=== PATIENT | female | born 1940 | race African-American/Black ===

== ENCOUNTER 2018-07-17 07:48 | Inpatient (IN) | payer MEDICARE, OTHER ==
[2018-07-17 08:14] LABS: Hemoglobin 9.7 g/dL (12.0-16.0); Mean Corpuscular HGB CONC 31.4 g/dL (32.0-36.0); Mean Corpuscular Hemoglobin 28.2 pg (27.0-31.0); Mean Corpuscular Volume 89.9 fL (78.0-98.0); Mean Platelet Volume 9.5 fL (7.4-10.4); Platelet Count 244 thou/uL (130-400); RBC Distribution Width 13.9 % (11.5-14.5); Red Blood Cell (RBC) Count 3.45 mill/uL (4.20-5.40); White Blood Cell (WBC) Count 18.4 thou/uL (4.8-10.8)
[2018-07-17 08:23] LABS: Bilirubin Negative (Negative); Blood, Urine Moderate (Negative); Clarity TURBID (Clear); Glucose, Urine (Dipstick) Negative (Negative); Leukocyte Large (Negative); Nitrite Negative (Negative); Protein, Urine (Dipstick) 300 mg/dL (Neg-Trace); Specific Gravity, Urine 1.012 (1.002-1.036); Urobilinogen 0.2 mg/dL (0.2-1.0)
[2018-07-17 08:23] LABS: INR-International Normal Ratio 1.1; PTT 27.9 SEC (22.9-36.1); Prothrombin Time 14.2 SEC (12.0-14.7)
[2018-07-17 08:26] LABS: Bacteria/HPF 4+ HPF (None Seen); RBC/HPF GREATER THAN 50-TNTC HPF (0-3); Squamous Epithelial 0-3 HPF (0-3)
[2018-07-17 08:27] LABS: Pathc Cast-AUWi Flag 7.15 (0-2.49); Yeast-AUWi Flag 56.7 (0-25.0)
[2018-07-17 08:29] LABS: Amphetamine Not Detected (NotDetected); Barbiturates Screen Not Detected (NotDetected); Benzodiazepine Screen Not Detected (NotDetected); Cocaine Metabolite Screen Not Detected (NotDetected); Medtox Control Line Valid? VALID (VALID); Medtox Reader # READER 1; Methadone Not Detected (NotDetected); Methamphetamine Not Detected (NotDetected); Opiate Screen Not Detected (NotDetected); Oxycodone Screen Not Detected (NotDetected); Phencyclidine (PCP) Not Detected (NotDetected); THC/Cannabinoid Screen Not Detected (NotDetected); Tricyclic Screen Not Detected (NotDetected)
[2018-07-17 08:30] LABS: ALT (SGPT) 17 U/L (8-55); AST (SGOT) 16 U/L (5-34); Acetaminophen Less than 6.0 mcg/mL (10.0-30.0); Albumin 3.5 g/dL (3.4-4.8); Alcohol Less than 10 mg/dL (Less than 10); Alkaline Phosphatase 82 U/L (40-150); Anion Gap 17 mmol/L (10-20); BUN (Urea Nitrogen) 38 mg/dL (9.8-20.1); Bilirubin, Total 0.3 mg/dL (0.2-1.2); Calc. Creatinine Clearance 0 mL/min (70-130); Calcium 9.7 mg/dL (7.8-10.44); Carbon Dioxide 20 mmol/L (23-31); Chloride 109 mmol/L (98-107); Estimated GFR-MDRD 20; Glucose 134 mg/dL (83-110); Potassium 4.8 mmol/L (3.5-5.1); Protein, Total 7.5 g/dL (6.0-8.3); Salicylate Less than 8.0 mg/dL (15.0-30.0); Sodium 141 mmol/L (136-145)
[2018-07-17 08:32] LABS: Band 3 % (5-11); Hypochromia SLIGHT = 6-15 cells (100X) (0-5/hpf); Lymphocytes 9 % (21-51); MDiff Complete? YES; Monocytes 5 % (0-10); Neutrophil 83 % (42-75); Platelet Morphology Comment Appears Adequate; Target Cells SLIGHT = 2-5 cells (100X) (0-1/hpf)
[2018-07-17 08:34] LABS: Hyaline Casts/LPF 0-3 HYALINE CAST LPF (0-3 Hyaline); Manual Microscopic Reviewed? No Path Casts Seen; Yeast-All Forms None Seen HPF (None Seen)
--- NOTE | 2018-07-17 09:14 | CT ---
HEAD CT WITHOUT CONTRAST: HISTORY: Altered mental status. COMPARISON: None. FINDINGS: No parenchymal hemorrhage. No extraaxial hematoma. No midline shift. The basilar cisterns are dhaliwal nt. Age appropriate atrophy. Cortical davies white matter differentiation is preserved. No evidence of hydrocephalus. White matter hypodensities due to chronic small vessel ischemic change. Remote in sult involving the left caudate nucleus and left miguel radiata. Adequate aeration of the sinuses and mastoid air cells. The calvarium is intact. IMPRESSION: No acute intracranial process. The results of the study were discussed with Dr. Morin on 07/17/2018 at 8:23 a.m. CODE CR POS: SAM
[2018-07-17] MEDS ORDERED: cefTRIAXone\\ROCEPHIN 2 GM VIAL ONE (09:15)
[2018-07-17] MEDS ORDERED: Acetaminophen 500 MG TAB ONE (10:20)
[2018-07-17] MEDS ORDERED: Ondansetron PF 4 MG/2 ML Vial ONE ×2 (10:47→12:02)
[2018-07-17] MEDS ORDERED: Morphine 2 MG/ML SYRINGE ONE ×2 (10:47→12:02)
[2018-07-17] MEDS ORDERED: Ondansetron PF 4 MG/2 ML Vial IVP PRN (12:45)
[2018-07-17] MEDS ORDERED: Dextrose 50% Abboject 50 ML SYRINGE SLOW IVP PRN (12:45)
[2018-07-17] MEDS ORDERED: Ondansetron ODT 4 MG TAB PO PRN (12:45)
[2018-07-17] MEDS ORDERED: Lorazepam 2 MG/ML VIAL SLOW IVP PRN (12:45)
[2018-07-17] MEDS ORDERED: Dextrose 5% in Water 1,000 ML IV PRN (12:45)
--- NOTE | 2018-07-17 14:02 | HP ---
PRIMARY CARE PROVIDER: Dr. Everett Drummond. CHIEF COMPLAINT: Confusion. HISTORY OF PRESENT ILLNESS: This is a 78-year-old female, who initially presented to [facility] after the patient's sister noted increased confusion and difficulty speaking. The symptoms began somewhat abruptly on the date of admission with slurred speech, decreased attentiveness, and confusion. The sister provides the majority of the history as the patient has disorientation, confusion, and essentially nonverbal. Discussions were also had with the emergency room attending regarding the patient's history. The patient was noted previously normal within the last 24 hours as she resides with her sister in the [facility]. The patient had similar presentation of confusion in September of 2017 after being discovered with urinary tract infection requiring hospitalization and IV antibiotic therapy. The sister reports the patient moved her sister to the [facility] so that she could care for her and establish with local physicians for long-term healthcare management. The sister became concerned when she felt like her sister was having a stroke and called EMS personnel. The patient was evaluated initially including glucose evaluation, which was normal. The patient was evaluated in the emergency department, undergoing CT imaging of the brain showing no acute process. Screening metabolic survey did reveal elevated creatinine as well as urinalysis suspicious for infectious process. The patient received IV Rocephin, Tylenol, normal saline, Zofran, and morphine sulfate in the emergency room. PAST MEDICAL HISTORY: 1. Hypertension. 2. Peripheral vascular disease. 3. Chronic kidney disease. 4. Diabetes mellitus type 2. PAST SURGICAL HISTORY: 1. Status post right lwpkl-[id number]-[id number] amputation. 2. Status post hysterectomy. CURRENT MEDICATIONS: 1. Lisinopril 20 mg p.o. b.i.d. 2. Metoprolol 25 mg p.o. daily. 3. Humalog. ALLERGIES: NO KNOWN DRUG ALLERGIES. FAMILY HISTORY: Positive for hypertension and diabetes. SOCIAL HISTORY: The patient resides in the [place], [place] area with her sister. Ambulates with a right lower extremity prosthesis. Needs assistance with activities of daily living and meal preparation. Smokes several cigarettes daily. Longstanding smoking history since the age of 12. No alcohol or illicit drug use. No recent fall. REVIEW OF SYSTEMS: Unobtainable as the patient with altered mental status and encephalopathy. PHYSICAL EXAMINATION: VITAL SIGNS: On admission, blood pressure 172/87, pulse 91, respiratory rate 20, temperature 98.6 degrees Fahrenheit, O2 saturation 97% on room air. GENERAL APPEARANCE: This is a 78-year-old female, alert and oriented to name only, agitated, moving all extremities. HEENT: Pupils are equal, round, reactive to light and accommodation. Extraocular muscles are intact. No scleral icterus. No conjunctival injection. Nares patent. OP is clear. Oral mucosa, dry appearing. NECK: Supple. No cervical adenopathy. No thyromegaly. No carotid bruits. No JVD appreciated. Cervical spine with full active and passive range of motion. No meningeal signs noted. CHEST: Lungs are clear to auscultation bilaterally. CARDIOVASCULAR: S1 and S2 without noted murmur, rub, or gallop. ABDOMEN: Rounded, soft, nontender, and nondistended. Bowel sounds are positive in all 4 quadrants. There is no hepatosplenomegaly. No abdominal bruits. Mild tenderness to palpation in the suprapubic region. EXTREMITIES: Warm and dry with fair turgor. Right [id number]-nht-zfvx amputation noted with stump intact. Pulses palpable at the dorsalis pedis and posterior tibial arteries in the left lower extremity. No asymmetric edema noted. NEUROLOGIC: Cranial nerves 2 through 12 are grossly intact. Alert and oriented x1 to person. Mumbles a few words. Not observed ambulatory during this exam. PERTINENT LABORATORY DATA AND X-RAY FINDINGS: Sodium 141, potassium 4.8, chloride 109, CO2 of 20, BUN 38, creatinine 2.34, estimated GFR 20, glucose 134, calcium 9.7. Lactic acid level 1.7. LFTs within normal limits. Serum ammonia level 17. Lipase 53. CBC showed a white blood cell count of 18.4, hemoglobin 9.7, hematocrit 31, platelet count 244 with 83% neutrophils. PT 14.2, INR 1.1, PTT 27.9. Urinalysis showed positive protein, moderate blood with large leukocyte esterase with greater than 50 to [id number]-tenqyafe-xc-count rbc's and wbc's per high-power field. Urine drug screen dated 07/17/2018, negative. Plasma alcohol level less than 10. CT of the brain without contrast dated 07/17/2018, showed no acute intracranial process. EKG dated 07/17/2018, by my interpretation shows sinus mechanism with heart rates in the 90s. Premature atrial contraction noted. Normal axis. No acute ST-T wave changes appreciated. ASSESSMENT AND PLAN: 1. Acute metabolic encephalopathy. Suspect secondarily to urinary tract infection. We will continue treatment as outlined in #2 and monitor mental status response. No current evidence to suggest an acute ischemic central event. Ativan 0.5 mg IV q.6 hours p.r.n. for agitation. 2. Urinary tract infection. Continue Rocephin 2 g IV q.24 hours. Urine culture pending. Continue IV fluids with normal saline. 3. Acute kidney injury. Avoid nephrotoxic agents and limit contrast exposure. Continue intravenous normal saline at 100 mL/h. Repeat creatinine in the a.m. 4. Chronic normocytic anemia. Suspect secondarily to chronic kidney disease. No current evidence to suggest acute blood loss. Repeat CBC in the a.m. 5. Diabetes mellitus type 2. Insulin sliding scale for reflexive coverage. Check A1c level in the a.m. Accu-Cheks a.c. and at bedtime. ADA diet. 6. Prophylaxis. Heparin 5000 units subcutaneously b.i.d. Pepcid 20 mg p.o. b.i.d. PT evaluation for functional assessment. 7. Code status is full. Surrogate medical decision maker is the patient's sister. Job ID: [id number]
[2018-07-17 14:51] VITALS: BMI 21.7
[2018-07-17] MEDS: Sodium Chloride 0.9% 1,000 ML IV SCH (15:08)
[2018-07-17] MEDS: Acetaminophen 500 MG TAB PO PRN (17:54)
[2018-07-17] MEDS: Famotidine 20 MG TAB PO SCH (20:20)
[2018-07-17] MEDS: Heparin 5,000 UNITS/ML VIAL SC SCH (20:20)
[2018-07-18] MEDS: Sodium Chloride 0.9% 1,000 ML IV SCH ×4 (01:23→22:31)
[2018-07-18] MEDS: Heparin 5,000 UNITS/ML VIAL SC SCH ×2 (07:58→20:06)
[2018-07-18] MEDS: cefTRIAXone\\ROCEPHIN 2 GM in Sodium Chloride 0.9% 100 ML IVPB SCH (07:58)
[2018-07-18 08:00] LABS: Hemoglobin A1c 4.8 % (4.0-6.0)
[2018-07-18] MEDS: hydrALAZINE 20 MG/ML VIAL SLOW IVP PRN (08:06)
[2018-07-18 08:14] LABS: Anion Gap 15 mmol/L (10-20); BUN (Urea Nitrogen) 27 mg/dL (9.8-20.1); Calc. Creatinine Clearance 23 mL/min (70-130); Carbon Dioxide 18 mmol/L (23-31); Chloride 113 mmol/L (98-107); Estimated GFR-MDRD 30; Glucose 116 mg/dL (83-110); Potassium 4.2 mmol/L (3.5-5.1); Sodium 142 mmol/L (136-145)
[2018-07-18 08:45] LABS: Band 1 % (5-11); Eosinophils 3 % (0-10); Hemoglobin 8.9 g/dL (12.0-16.0); Lymphocytes 11 % (21-51); MDiff Complete? YES; Mean Corpuscular HGB CONC 33.2 g/dL (32.0-36.0); Mean Corpuscular Hemoglobin 29.5 pg (27.0-31.0); Mean Corpuscular Volume 88.9 fL (78.0-98.0); Mean Platelet Volume 9.5 fL (7.4-10.4); Monocytes 10 % (0-10); Neutrophil 75 % (42-75); Platelet Count 204 thou/uL (130-400); RBC Morphology Normal; Red Blood Cell (RBC) Count 3.01 mill/uL (4.20-5.40); White Blood Cell (WBC) Count 12.4 thou/uL (4.8-10.8)
--- NOTE | 2018-07-18 12:06 | RAD ---
RIGHT HIP TWO VIEWS: HISTORY: Pain. COMPARISON: None. FINDINGS: There is irregularity involving the medial aspect of the acetabulum. This does raise the concern for a possible fracture. Further interrogation with CT is recommended. Contour of the femoral head is maintained. Hip joint space is preserved. IMPRESSION: Possible right acetabular fracture. Better interrogation with CT is recommended. CODE T POS: [facility]
[2018-07-18] MEDS: Acetaminophen 500 MG TAB PO PRN (12:27)
--- NOTE | 2018-07-18 13:47 | CT ---
CT OF THE PELVIS WITHOUT CONTRAST: INDICATION: Right acetabular fracture. FINDINGS: There is a comminuted fracture involving the anterior column, anterior wall, and medial wall of the r ight hip. There is mild protrusio deformity of the right hip. The posterior column remains intact. The posterior wall remains intact. No additional fracture is evident. There is diffuse osteopenia. There is a right ureteral stent in place. There is moderate degenerative change of both SI joints. There is moderate degenerative change of the symphysis pubic. A small bone island is seen within t he left acetabulum. There are scattered vascular calcifications of the pelvis. IMPRESSION: Comminuted right acetabular fracture. POS: [facility]
--- NOTE | 2018-07-18 14:33 | PDOC.PN ---
- Subjective Encounter Start Date: 07/18/18 Encounter Start Time: 08:20 Pt seen for followup re; acute metabolic encephalopathy. Denies chest pain, shortness of breath, fevers or chills. c/o R hip pain - Objective Resuscitation Status - Order Detail: 07/17/18 11:48 Resuscitation Status Routine Resuscitation Status: FULL: Full Resuscitation Vital Signs & Weight: Vital Signs (12 hours) Temp Pulse Resp BP Pulse Ox 07/18/18 11:42 99.2 F 96 18 167/70 H 100 07/18/18 08:06 99 07/18/18 07:53 98.7 F 99 20 191/78 H 97 07/18/18 05:20 99.6 F 71 20 176/75 H 93 L Weight Weight 134 lb 3 oz I&O: 07/17/18 07/18/18 07/19/18 06:59 06:59 06:59 Intake Total 1520 Balance 1520 Result Diagrams: 07/18/18 07:17 07/18/18 07:17 Additional Labs: Accuchecks 07/18/18 07/18/18 07/17/18 11:40 05:18 20:16 POC Glucose 202 H 135 H 183 H 07/17/18 17:29 POC Glucose 162 H Phys Exam - Physical Examination Constitutional: NAD HEENT: moist MMs, sclera anicteric, oral pharynx no lesions, 2+ tonsils Neck: no nodes, no JVD, supple, full ROM Respiratory: clear to auscultation bilateral Cardiovascular: RRR, no rub S1, s2 Gastrointestinal: soft, non-tender, no distention, positive bowel sounds R hip tenderness Neurological: moves all 4 limbs Psychiatric: normal affect Deviation from normal: Oriented to person only, not to place or time Dx/Plan (1) Acute metabolic encephalopathy Code(s): G93.41 - METABOLIC ENCEPHALOPATHY Status: Acute Comment: Improving , likely secondary to UTI (2) UTI (urinary tract infection) Status: Acute Comment: continue IV antibiotics as below (3) Right hip pain Code(s): M25.551 - PAIN IN RIGHT HIP Status: Acute Comment: check hip x- rays (4) SABAS (acute kidney injury) Code(s): N17.9 - ACUTE KIDNEY FAILURE, UNSPECIFIED Status: Acute Comment: Improving, continue IV fluids. Hold lisinopril (5) HTN (hypertension) Code(s): I10 - ESSENTIAL (PRIMARY) HYPERTENSION Status: Chronic Comment: monitor vital signs, titrate antihypertensives as needed. Hold lisinopril. - Plan * . Review of Systems - Review of Systems Constitutional: negative: fever, chills, sweats, weakness, malaise Respiratory: negative: Cough, Shortness of Breath, SOB with Excertion, Pleuritic Pain, Wheezing Cardiovascular: negative: chest pain, palpitations, orthopnea, paroxysmal nocturnal dyspnea, edema, light headedness Gastrointestinal: negative: Nausea, Vomiting, Abdominal Pain, Diarrhea, Constipation, Melena, Hematochezia Musculoskeletal: Other (R hip pain). negative: Neck Pain, Shoulder Pain, Arm Pain, Back Pain, Hand Pain, Leg Pain, Foot Pain - Medications/Allergies Allergies/Adverse Reactions: Allergies Allergy/AdvReac Type Severity Reaction Status Date / Time No Known Allergies Allergy Unverified 07/17/18 13:42 Medications: Current Medications Acetaminophen (Tylenol) 1,000 mg PO Q6H PRN PRN Reason: Mild Pain (1-3) Last Admin: 07/18/18 12:27 Dose: 1,000 mg Dextrose/Water (Dextrose 50%) 25 gm SLOW IVP PRN PRN PRN Reason: Hypoglycemia Famotidine (Pepcid) 20 mg PO QPM [facility] Last Admin: 07/17/18 20:20 Dose: 20 mg Glucagon (Glucagon) 1 mg IM PRN PRN PRN Reason: Hypoglycemia Heparin Sodium (Porcine) (Heparin) 5,000 units SC BID [facility] Last Admin: 07/18/18 07:58 Dose: 5,000 units Hydralazine HCl (Apresoline) 10 mg SLOW IVP Q4H PRN PRN Reason: SBP > 180 and HR < 70 Last Admin: 07/18/18 08:06 Dose: 10 mg Ceftriaxone Sodium 2 gm/ (Sodium Chloride) 100 mls @ 200 mls/hr IVPB QAM [facility] Last Admin: 07/18/18 07:58 Dose: 100 mls Dextrose/Water (D5w) 1,000 mls @ 0 mls/hr IV .Q0M PRN PRN Reason: Hypoglycemia Sodium Chloride (Normal Saline 0.9%) 1,000 mls @ 100 mls/hr IV .Q10H [facility] Last Admin: 07/18/18 07:58 Dose: 1,000 mls Insulin Human Lispro (Humalog) 0 units SC .MILD SLIDING SCALE PRN PRN Reason: Mild Correctional Scale Insulin Human Lispro (Humalog) 0 units SC .BEDTIME SLIDING SC PRN PRN Reason: Bedtime Correctional Scale Lorazepam (Ativan) 0.5 mg SLOW IVP Q6H PRN PRN Reason: Anxiety/Agitation Metoprolol Tartrate (Lopressor) 50 mg PO DAILY [facility] Ondansetron HCl (Zofran Odt) 4 mg PO Q6H PRN PRN Reason: Nausea/Vomiting Ondansetron HCl (Zofran) 4 mg IVP Q6H PRN PRN Reason: Nausea/Vomiting
[2018-07-18] MEDS ORDERED: Acetaminophen/Codeine 30-300mg Tablet PO PRN (14:55)
--- NOTE | 2018-07-18 15:11 | CON ---
DATE OF CONSULTATION: 07/18/2018 REQUESTING PHYSICIAN: Medicine Service. CONSULTING PHYSICIAN: Dr. Tao Wood. REASON FOR CONSULTATION: Right acetabulum fracture. HISTORY OF PRESENT ILLNESS: This is a 78-year-old female, who initially presented to [facility] with increased confusion and difficulty speaking per the patient's sister. The patient lives with her sister and has a history of dementia and confusion. She is essentially nonverbal, and the majority of the history has been obtained per the sister at bedside and per records. She had a similar episode in September of 2017 after being discovered with urinary tract infection, requiring hospitalization and IV antibiotic therapy. The patient has currently been admitted for IV antibiotic therapy with a UTI. Upon further workup, the patient was found to have a right nondisplaced acetabulum fracture. We have been consulted for this reason. Currently, at bedside, the patient denies any history of falls. Sister also denies witnessing any falls. She denies any hip discomfort at this time. PAST MEDICAL HISTORY: Significant for hypertension, peripheral vascular disease, chronic kidney disease, diabetes mellitus type 2, and dementia. PAST SURGICAL HISTORY: Status post right [id number] amputation approximately 8 years ago, status post hysterectomy. ALLERGIES: NO KNOWN DRUG ALLERGIES. FAMILY HISTORY: Noncontributory. SOCIAL HISTORY: The patient resides in [place], [place] with her sister. She ambulates with a right lower extremity prosthesis and a rolling walker. She smokes several cigarettes daily. She is a longstanding smoker since the age of 12. No alcohol or illicit drug use. REVIEW OF SYSTEMS: Unobtainable secondary to the patient's dementia. PHYSICAL EXAMINATION: VITAL SIGNS: Including temperature of 99.2 degrees Fahrenheit, pulse of 96, respiratory rate of 18, O2 saturation of 100% on room air, and blood pressure of 167/70. GENERAL: The patient is awake and alert. She is pleasant and cooperative with exam, although very confused. Sister is currently at bedside. HEENT: Head is normocephalic and atraumatic. NECK: Supple. Trachea is midline. LUNGS: Breathing is nonlabored. EXTREMITIES: The right lower extremity was evaluated. The patient has a history of a BKA on this side. The stump has a well-healed surgical scar. No evidence of skin breakdown. No rashes, no lesions. The patient moves this extremity about freely without any discomfort noted. There is no soft tissue swelling or ecchymosis noted. I am able to palpate along the femur up to the greater trochanter without any discomfort. I am also able to move her hip around without any discomfort noted. Remainder of extremities evaluated and no other injuries are noted. IMAGING: Imaging review by myself as well as Dr. Wood shows a 2-view x-ray of the right hip with a probable nondisplaced acetabulum fracture. Further evaluation by CT shows a right acetabulum fracture. ASSESSMENT: Right acetabulum fracture in an elderly female with dementia and history of [id number] amputation on the same side. PLAN: At this time, we would like to make the patient toe-touch weightbearing in order to keep this fracture site from displacing any further. I have had a long talk with the family today in the hospital room regarding this. She does ambulate with a BKA prosthesis. It may be best to leave the prosthesis off or have the patient use a wheelchair to get around for the next couple of months while this is healing. Any further pressure can cause displacement on the fracture site. If this does not heal or heals incorrectly, she will need a total hip replacement in the future. This was also discussed with the family today. They verbalized understanding on the plan of care. We will proceed with toe-touch weightbearing on the right lower extremity and nonsurgical management of this fracture. I will consult Clinical Unit Educator. They may get a wheelchair arranged for her at home. Job ID: [id number]
[2018-07-18] MEDS: Acetaminophen/Codeine 30-300mg Tablet PO PRN ×2 (15:40→22:29)
[2018-07-18] MEDS: HumaLOG 300 UNITS/3 ML VIAL SC PRN (16:15)
[2018-07-18] MEDS: Famotidine 20 MG TAB PO SCH (20:06)
[2018-07-19] MEDS: hydrALAZINE 20 MG/ML VIAL SLOW IVP PRN ×2 (00:43→09:47)
[2018-07-19] MEDS: Sodium Chloride 0.9% 1,000 ML IV SCH ×2 (08:19→20:48)
[2018-07-19] MEDS: cefTRIAXone\\ROCEPHIN 2 GM in Sodium Chloride 0.9% 100 ML IVPB SCH (09:42)
[2018-07-19] MEDS: Metoprolol Tartrate 50 MG TAB PO SCH (09:45)
[2018-07-19] MEDS: Heparin 5,000 UNITS/ML VIAL SC SCH ×2 (09:46→20:48)
[2018-07-19] MEDS ORDERED: hydrALAZINE 25 MG TAB PO SCH (12:15)
[2018-07-19] MEDS: Nicotine 14 MG PATCH TD SCH (12:39)
[2018-07-19] MEDS: HumaLOG 300 UNITS/3 ML VIAL SC PRN ×2 (12:43→17:38)
--- NOTE | 2018-07-19 17:31 | PDOC.PN ---
- Subjective Encounter Start Date: 07/19/18 Encounter Start Time: 09:00 Pt seen for followup re: acute metabolic encephalopathy. Says she feels fine. - Objective Resuscitation Status - Order Detail: 07/17/18 11:48 Resuscitation Status Routine Resuscitation Status: FULL: Full Resuscitation Vital Signs & Weight: Vital Signs (12 hours) Temp Pulse Resp BP BP Pulse Ox 07/19/18 12:37 76 07/19/18 12:31 98.6 F 76 20 166/66 H 95 07/19/18 09:47 102 H 186/85 H 07/19/18 08:05 98.5 F 102 H 22 H 186/85 H 95 07/19/18 08:00 95 Weight Weight 134 lb 3 oz I&O: 07/18/18 07/19/18 07/20/18 06:59 06:59 06:59 Intake Total 1520 1400 120 Balance 1520 1400 120 Result Diagrams: 07/18/18 07:17 07/18/18 07:17 Additional Labs: Accuchecks 07/19/18 07/19/18 07/19/18 16:25 11:51 04:55 POC Glucose 219 H 218 H 154 H 07/18/18 07/18/18 19:44 15:56 POC Glucose 128 H 321 H Phys Exam - Physical Examination Constitutional: NAD HEENT: moist MMs Neck: supple Respiratory: clear to auscultation bilateral Cardiovascular: RRR Gastrointestinal: soft R hip tenderness Neurological: moves all 4 limbs Psychiatric: normal affect Dx/Plan (1) Acute metabolic encephalopathy Code(s): G93.41 - METABOLIC ENCEPHALOPATHY Status: Acute Comment: Improving (2) UTI (urinary tract infection) Status: Acute Comment: continue IV antibiotics as below, follow cultures (3) Right acetabular fracture Code(s): S32.401A - UNSP FRACTURE OF RIGHT ACETABULUM, INIT FOR CLOS FX Status : Acute Comment: appreciate ortho service input (4) SABAS (acute kidney injury) Code(s): N17.9 - ACUTE KIDNEY FAILURE, UNSPECIFIED Status: Acute Comment: Continue IV fluids. Hold lisinopril. Check AM labs. (5) HTN (hypertension) Code(s): I10 - ESSENTIAL (PRIMARY) HYPERTENSION Status: Chronic Comment: monitor vital signs, titrate antihypertensives as needed. - Plan * . Review of Systems - Review of Systems Cardiovascular: negative: chest pain, palpitations, orthopnea, paroxysmal nocturnal dyspnea, edema, light headedness Gastrointestinal: negative: Nausea, Vomiting, Abdominal Pain, Diarrhea, Constipation, Melena, Hematochezia Musculoskeletal: Other (right hip pain) - Medications/Allergies Allergies/Adverse Reactions: Allergies Allergy/AdvReac Type Severity Reaction Status Date / Time No Known Allergies Allergy Unverified 07/17/18 13:42 Medications: Current Medications Acetaminophen (Tylenol) 1,000 mg PO Q6H PRN PRN Reason: Mild Pain (1-3) Last Admin: 07/18/18 12:27 Dose: 1,000 mg Acetaminophen/Codeine Phosphate (Tylenol #3) 1 tab PO Q6H PRN PRN Reason: Moderate Pain (4-6) Last Admin: 07/18/18 22:29 Dose: 1 tab Acetaminophen/Codeine Phosphate (Tylenol #3) 2 tab PO Q6H PRN PRN Reason: Severe Pain (7-10) Dextrose/Water (Dextrose 50%) 25 gm SLOW IVP PRN PRN PRN Reason: Hypoglycemia Famotidine (Pepcid) 20 mg PO QPM [facility] Last Admin: 07/18/18 20:06 Dose: 20 mg Glucagon (Glucagon) 1 mg IM PRN PRN PRN Reason: Hypoglycemia Heparin Sodium (Porcine) (Heparin) 5,000 units SC BID [facility] Last Admin: 07/19/18 09:46 Dose: 5,000 units Hydralazine HCl (Apresoline) 10 mg SLOW IVP Q4H PRN PRN Reason: SBP > 180 and HR < 70 Last Admin: 07/19/18 09:47 Dose: 10 mg Hydralazine HCl (Apresoline) 25 mg PO TID [facility] Ceftriaxone Sodium 2 gm/ (Sodium Chloride) 100 mls @ 200 mls/hr IVPB QAM [facility] Last Admin: 07/19/18 09:42 Dose: 100 mls Dextrose/Water (D5w) 1,000 mls @ 0 mls/hr IV .Q0M PRN PRN Reason: Hypoglycemia Sodium Chloride (Normal Saline 0.9%) 1,000 mls @ 100 mls/hr IV .Q10H [facility] Last Admin: 07/19/18 08:19 Dose: 1,000 mls Insulin Human Lispro (Humalog) 0 units SC .MILD SLIDING SCALE PRN PRN Reason: Mild Correctional Scale Last Admin: 07/19/18 12:43 Dose: 3 unit Insulin Human Lispro (Humalog) 0 units SC .BEDTIME SLIDING SC PRN PRN Reason: Bedtime Correctional Scale Lorazepam (Ativan) 0.5 mg SLOW IVP Q6H PRN PRN Reason: Anxiety/Agitation Metoprolol Tartrate (Lopressor) 50 mg PO DAILY [facility] Last Admin: 07/19/18 09:45 Dose: 50 mg Nicotine (Nicoderm Patch) 14 mg TD Q24HR [facility] Last Admin: 07/19/18 12:39 Dose: 14 mg Ondansetron HCl (Zofran Odt) 4 mg PO Q6H PRN PRN Reason: Nausea/Vomiting Ondansetron HCl (Zofran) 4 mg IVP Q6H PRN PRN Reason: Nausea/Vomiting
[2018-07-19] MEDS: hydrALAZINE 25 MG TAB PO SCH ×2 (17:38→20:47)
[2018-07-19] MEDS: Famotidine 20 MG TAB PO SCH (20:47)
[2018-07-20] MEDS: hydrALAZINE 20 MG/ML VIAL SLOW IVP PRN (00:21)
[2018-07-20] MEDS: Sodium Chloride 0.9% 1,000 ML IV SCH (05:40)
[2018-07-20] MEDS: HumaLOG 300 UNITS/3 ML VIAL SC PRN ×2 (05:42→12:19)
[2018-07-20 07:25] LABS: #Eosinphils 0.2 thou/uL (0.0-0.7); #Lymphocytes 1.3 thou/uL (1.20-3.40); #Monocytes 1.1 thou/uL (0.11-0.59); #Neutrophils 8.6 thou/uL (1.40-6.50); %Basophils 0.2 % (0.0-1.0); %Eosinophils 1.5 % (0.0-10.0); %Lymphocytes 11.6 % (21.0-51.0); %Monocytes 9.7 % (0.0-10.0); Hemoglobin 8.4 g/dL (12.0-16.0); Mean Corpuscular HGB CONC 33.4 g/dL (32.0-36.0); Mean Corpuscular Hemoglobin 29.5 pg (27.0-31.0); Mean Corpuscular Volume 88.1 fL (78.0-98.0); Mean Platelet Volume 9.1 fL (7.4-10.4); Platelet Count 183 thou/uL (130-400); Red Blood Cell (RBC) Count 2.85 mill/uL (4.20-5.40); White Blood Cell (WBC) Count 11.2 thou/uL (4.8-10.8)
[2018-07-20 07:42] LABS: Anion Gap 13 mmol/L (10-20); BUN (Urea Nitrogen) 20 mg/dL (9.8-20.1); Calc. Creatinine Clearance 27 mL/min (70-130); Calcium 8.8 mg/dL (7.8-10.44); Carbon Dioxide 18 mmol/L (23-31); Chloride 115 mmol/L (98-107); Estimated GFR-MDRD 37; Glucose 112 mg/dL (83-110); Potassium 3.8 mmol/L (3.5-5.1); Sodium 142 mmol/L (136-145)
[2018-07-20] MEDS: Heparin 5,000 UNITS/ML VIAL SC SCH ×2 (09:20→20:22)
[2018-07-20] MEDS: Metoprolol Tartrate 50 MG TAB PO SCH ×2 (09:20→20:21)
[2018-07-20] MEDS: hydrALAZINE 25 MG TAB PO SCH ×3 (09:20→20:21)
[2018-07-20] MEDS: cefTRIAXone\\ROCEPHIN 2 GM in Sodium Chloride 0.9% 100 ML IVPB SCH (09:21)
[2018-07-20] MEDS: Nicotine 14 MG PATCH TD SCH (12:17)
--- NOTE | 2018-07-20 14:48 | PDOC.PN ---
- Subjective Encounter Start Date: 07/20/18 Encounter Start Time: 14:46 Subjective: Admitted with acute confusion. Found to have UTI and started on abx. -: Later complained of R hip pain and imaging showed acetabular fracture. -: still complaing of pain. Surgery recommended non surgery at this time. - Objective Resuscitation Status - Order Detail: 07/17/18 11:48 Resuscitation Status Routine Resuscitation Status: FULL: Full Resuscitation Vital Signs & Weight: Vital Signs (12 hours) Temp Pulse Resp BP BP Pulse Ox 07/20/18 11:17 98.2 F 67 20 155/73 H 95 07/20/18 09:20 89 188/72 H 07/20/18 08:00 96 07/20/18 07:59 97.8 F 89 18 188/72 H 96 07/20/18 03:51 97.9 F 99 18 177/83 H 94 L Weight Weight 134 lb 3 oz I&O: 07/19/18 07/20/18 07/21/18 06:59 06:59 06:59 Intake Total 1400 1800 400 Balance 1400 1800 400 Result Diagrams: 07/20/18 07:16 07/20/18 07:16 Additional Labs: Accuchecks 07/20/18 07/20/18 07/19/18 11:19 05:43 20:34 POC Glucose 182 H 161 H 155 H 07/19/18 16:25 POC Glucose 219 H Phys Exam - Physical Examination afebrile HEENT: PERRLA, moist MMs Neck: no JVD Respiratory: no wheezing, no rhonchi Cardiovascular: RRR, no significant murmur Gastrointestinal: soft, non-tender, no distention, positive bowel sounds Musculoskeletal: no edema R BKA noted Neurological: non-focal, moves all 4 limbs Psychiatric: A&O x 3 Dx/Plan (1) SABAS (acute kidney injury) Code(s): N17.9 - ACUTE KIDNEY FAILURE, UNSPECIFIED Status: Acute Comment: Continue IV fluids. Hold lisinopril. Check AM labs. (2) Acute metabolic encephalopathy Code(s): G93.41 - METABOLIC ENCEPHALOPATHY Status: Acute Comment: Improving (3) Right acetabular fracture Code(s): S32.401A - UNSP FRACTURE OF RIGHT ACETABULUM, INIT FOR CLOS FX Status : Acute Comment: appreciate ortho service input (4) Right hip pain Code(s): M25.551 - PAIN IN RIGHT HIP Status: Acute Comment: check hip x- rays (5) UTI (urinary tract infection) Status: Acute Comment: continue IV antibiotics as below, follow cultures (6) HTN (hypertension) Code(s): I10 - ESSENTIAL (PRIMARY) HYPERTENSION Status: Chronic Comment: monitor vital signs, titrate antihypertensives as needed. (7) Diabetes mellitus Code(s): E11.9 - TYPE 2 DIABETES MELLITUS WITHOUT COMPLICATIONS Status: Acute (8) S/P BKA (below knee amputation) unilateral Code(s): Z89.519 - ACQUIRED ABSENCE OF UNSPECIFIED LEG BELOW KNEE Status: Acute (9) PVD (peripheral vascular disease) Code(s): I73.9 - PERIPHERAL VASCULAR DISEASE, UNSPECIFIED Status: Acute (10) Hyperchloremic acidosis Code(s): E87.2 - ACIDOSIS Status: Acute - Plan start amlodipine 5 mg daily, Increase metoprolol to 50 bid -: DC NS IVF and start oral sodium bicarb -: Start lidocaine patch Monitor renal function. -: Continue other treatments. * .
[2018-07-20] MEDS ORDERED: Amlodipine 5 MG TAB PO SCH ×2 (15:00→19:00)
[2018-07-20] MEDS: Acetaminophen 500 MG TAB PO PRN (16:42)
[2018-07-20] MEDS: Sodium Bicarbonate Tab 325 MG TAB PO SCH ×2 (16:42→20:21)
[2018-07-20] MEDS: Famotidine 20 MG TAB PO SCH (20:22)
[2018-07-21] MEDS: hydrALAZINE 20 MG/ML VIAL SLOW IVP PRN (05:58)
[2018-07-21 06:57] LABS: #Basophils 0.1 thou/uL (0.0-0.2); #Eosinphils 0.4 thou/uL (0.0-0.7); #Lymphocytes 1.4 thou/uL (1.20-3.40); #Neutrophils 6.9 thou/uL (1.40-6.50); %Basophils 0.6 % (0.0-1.0); %Eosinophils 4.2 % (0.0-10.0); %Lymphocytes 14.4 % (21.0-51.0); %Monocytes 10.6 % (0.0-10.0); %Neutrophils 70.2 % (42.0-75.0); Hemoglobin 8.4 g/dL (12.0-16.0); Mean Corpuscular HGB CONC 33.4 g/dL (32.0-36.0); Mean Corpuscular Hemoglobin 30.1 pg (27.0-31.0); Mean Corpuscular Volume 90.1 fL (78.0-98.0); Mean Platelet Volume 9.5 fL (7.4-10.4); Platelet Count 211 thou/uL (130-400); RBC Distribution Width 14.3 % (11.5-14.5); Red Blood Cell (RBC) Count 2.79 mill/uL (4.20-5.40); White Blood Cell (WBC) Count 9.8 thou/uL (4.8-10.8)
[2018-07-21 07:14] LABS: Anion Gap 13 mmol/L (10-20); BUN (Urea Nitrogen) 21 mg/dL (9.8-20.1); Calc. Creatinine Clearance 27 mL/min (70-130); Calcium 8.8 mg/dL (7.8-10.44); Carbon Dioxide 18 mmol/L (23-31); Chloride 112 mmol/L (98-107); Estimated GFR-MDRD 36; Glucose 116 mg/dL (83-110); Sodium 139 mmol/L (136-145)
[2018-07-21] MEDS: Sodium Bicarbonate Tab 325 MG TAB PO SCH ×3 (08:07→20:31)
[2018-07-21] MEDS: Metoprolol Tartrate 50 MG TAB PO SCH ×2 (08:07→20:31)
[2018-07-21] MEDS: hydrALAZINE 25 MG TAB PO SCH ×3 (08:07→20:31)
[2018-07-21] MEDS: cefTRIAXone\\ROCEPHIN 2 GM in Sodium Chloride 0.9% 100 ML IVPB SCH (08:08)
[2018-07-21] MEDS: Heparin 5,000 UNITS/ML VIAL SC SCH ×2 (08:08→20:32)
[2018-07-21] MEDS ORDERED: Amlodipine 5 MG TAB PO SCH ×2 (09:00→14:30)
[2018-07-21] MEDS ORDERED: Lidocaine 5% Patch TD SCH (09:00)
[2018-07-21] MEDS: Nicotine 14 MG PATCH TD SCH (12:19)
--- NOTE | 2018-07-21 14:31 | PDOC.PN ---
- Subjective Encounter Start Date: 07/21/18 Encounter Start Time: 14:30 Subjective: No new problem. Still having some pain at the right hip area. -: No fever or chest pain. Denied dysuria - Objective Resuscitation Status - Order Detail: 07/17/18 11:48 Resuscitation Status Routine Resuscitation Status: FULL: Full Resuscitation Vital Signs & Weight: Vital Signs (12 hours) Temp Pulse Resp BP BP Pulse Ox 07/21/18 08:07 89 173/67 H 07/21/18 08:06 89 173/67 H 07/21/18 07:33 98.9 F 89 16 173/67 H 95 07/21/18 05:58 76 181/78 H 07/21/18 04:00 98.6 F 76 20 181/78 H 95 Weight Weight 134 lb 3 oz I&O: 07/20/18 07/21/18 07/22/18 06:59 06:59 06:59 Intake Total 1800 1240 Balance 1800 1240 Result Diagrams: 07/21/18 06:36 07/21/18 06:36 Additional Labs: Accuchecks 07/21/18 07/21/18 07/20/18 11:24 04:24 19:34 POC Glucose 181 H 124 H 174 H 07/20/18 16:03 POC Glucose 103 Phys Exam - Physical Examination Constitutional: NAD HEENT: PERRLA, moist MMs Neck: no JVD, supple Respiratory: no wheezing, no rales, no rhonchi Cardiovascular: RRR, no significant murmur Gastrointestinal: soft, non-tender, no distention, positive bowel sounds Musculoskeletal: no edema, pulses present Right BKA noted Neurological: non-focal, moves all 4 limbs Psychiatric: A&O x 3 Dx/Plan (1) SABAS (acute kidney injury) Code(s): N17.9 - ACUTE KIDNEY FAILURE, UNSPECIFIED Status: Acute (2) Acute metabolic encephalopathy Code(s): G93.41 - METABOLIC ENCEPHALOPATHY Status: Acute Comment: Resolved. (3) Right acetabular fracture Code(s): S32.401A - UNSP FRACTURE OF RIGHT ACETABULUM, INIT FOR CLOS FX Status : Acute Comment: appreciate ortho service input (4) Right hip pain Code(s): M25.551 - PAIN IN RIGHT HIP Status: Acute (5) UTI (urinary tract infection) Status: Acute Comment: continue IV antibiotics as below, follow cultures (6) HTN (hypertension) Code(s): I10 - ESSENTIAL (PRIMARY) HYPERTENSION Status: Chronic Comment: monitor vital signs, titrate antihypertensives as needed. (7) Diabetes mellitus Code(s): E11.9 - TYPE 2 DIABETES MELLITUS WITHOUT COMPLICATIONS Status: Acute (8) S/P BKA (below knee amputation) unilateral Code(s): Z89.519 - ACQUIRED ABSENCE OF UNSPECIFIED LEG BELOW KNEE Status: Acute (9) PVD (peripheral vascular disease) Code(s): I73.9 - PERIPHERAL VASCULAR DISEASE, UNSPECIFIED Status: Acute (10) Hyperchloremic acidosis Code(s): E87.2 - ACIDOSIS Status: Acute - Plan Increase amlodipine to 10 mg daily -: Continue other antihypertensives. -: Continue rocephin to complete a day course. -: Aawaiting SNF placement. Monitor H/H and renal function * .
[2018-07-21] MEDS: Famotidine 20 MG TAB PO SCH (20:31)
[2018-07-21] MEDS: Lidocaine Patch Removal 1 EACH TOP SCH (21:53)
[2018-07-22] MEDS: hydrALAZINE 20 MG/ML VIAL SLOW IVP PRN (04:25)
[2018-07-22 06:47] LABS: #Basophils 0.1 thou/uL (0.0-0.2); #Eosinphils 0.2 thou/uL (0.0-0.7); #Lymphocytes 1.8 thou/uL (1.20-3.40); #Monocytes 1.3 thou/uL (0.11-0.59); #Neutrophils 7.5 thou/uL (1.40-6.50); %Basophils 0.5 % (0.0-1.0); %Eosinophils 2.1 % (0.0-10.0); %Lymphocytes 16.4 % (21.0-51.0); %Monocytes 11.8 % (0.0-10.0); %Neutrophils 69.2 % (42.0-75.0); Hemoglobin 8.4 g/dL (12.0-16.0); Mean Corpuscular HGB CONC 33.5 g/dL (32.0-36.0); Mean Corpuscular Hemoglobin 29.6 pg (27.0-31.0); Mean Corpuscular Volume 88.2 fL (78.0-98.0); Mean Platelet Volume 8.9 fL (7.4-10.4); Platelet Count 235 thou/uL (130-400); RBC Distribution Width 14.2 % (11.5-14.5); Red Blood Cell (RBC) Count 2.82 mill/uL (4.20-5.40); White Blood Cell (WBC) Count 10.9 thou/uL (4.8-10.8)
[2018-07-22 07:09] LABS: Anion Gap 13 mmol/L (10-20); BUN (Urea Nitrogen) 26 mg/dL (9.8-20.1); Calc. Creatinine Clearance 25 mL/min (70-130); Carbon Dioxide 19 mmol/L (23-31); Chloride 112 mmol/L (98-107); Estimated GFR-MDRD 33; Glucose 112 mg/dL (83-110); Potassium 3.9 mmol/L (3.5-5.1); Sodium 140 mmol/L (136-145)
[2018-07-22] MEDS: cefTRIAXone\\ROCEPHIN 2 GM in Sodium Chloride 0.9% 100 ML IVPB SCH (07:44)
[2018-07-22] MEDS: Heparin 5,000 UNITS/ML VIAL SC SCH ×2 (07:45→20:45)
[2018-07-22] MEDS: Sodium Bicarbonate Tab 325 MG TAB PO SCH ×2 (07:45→20:17)
[2018-07-22] MEDS: hydrALAZINE 25 MG TAB PO SCH ×3 (07:46→20:17)
[2018-07-22] MEDS: Amlodipine 10 MG TAB PO SCH (07:46)
[2018-07-22] MEDS: Metoprolol Tartrate 50 MG TAB PO SCH ×2 (07:46→20:46)
[2018-07-22] MEDS: Nicotine 14 MG PATCH TD SCH (07:47)
[2018-07-22] MEDS ORDERED: Lisinopril 20 MG TAB PO SCH (13:45)
--- NOTE | 2018-07-22 15:04 | PDOC.PN ---
- Subjective Encounter Start Date: 07/22/18 Encounter Start Time: 15:02 -: old records requested/rev Subjective: No new problem -: Awaiting placement - Objective Resuscitation Status - Order Detail: 07/17/18 11:48 Resuscitation Status Routine Resuscitation Status: FULL: Full Resuscitation Vital Signs & Weight: Vital Signs (12 hours) Temp Pulse Resp BP BP BP Pulse Ox 07/22/18 14:18 73 152/68 H 07/22/18 11:52 69 155/76 H 07/22/18 07:49 98.8 F 77 20 173/72 H 94 L 07/22/18 07:46 74 173/72 H 07/22/18 06:25 164/78 H 07/22/18 04:25 74 07/22/18 04:22 74 18 190/75 H 94 L Weight Weight 134 lb 3 oz I&O: 07/21/18 07/22/18 07/23/18 06:59 06:59 06:59 Intake Total 1240 500 360 Balance 1240 500 360 Result Diagrams: 07/22/18 06:25 07/22/18 06:25 Additional Labs: Accuchecks 07/22/18 07/22/18 07/21/18 11:52 04:17 19:37 POC Glucose 134 H 130 H 163 H 07/21/18 16:35 POC Glucose 160 H Phys Exam - Physical Examination Constitutional: NAD HEENT: PERRLA, moist MMs Neck: no JVD, supple Respiratory: no wheezing, no rales, no rhonchi Cardiovascular: RRR Gastrointestinal: soft, non-tender, no distention, positive bowel sounds Musculoskeletal: no edema Right BKA Neurological: moves all 4 limbs Psychiatric: A&O x 3 Dx/Plan (1) SABAS (acute kidney injury) Code(s): N17.9 - ACUTE KIDNEY FAILURE, UNSPECIFIED Status: Acute (2) Acute metabolic encephalopathy Code(s): G93.41 - METABOLIC ENCEPHALOPATHY Status: Acute Comment: Resolved. (3) Right acetabular fracture Code(s): S32.401A - UNSP FRACTURE OF RIGHT ACETABULUM, INIT FOR CLOS FX Status : Acute Comment: appreciate ortho service input (4) Right hip pain Code(s): M25.551 - PAIN IN RIGHT HIP Status: Acute (5) UTI (urinary tract infection) Status: Acute (6) HTN (hypertension) Code(s): I10 - ESSENTIAL (PRIMARY) HYPERTENSION Status: Chronic Comment: Control better but still suboptimal (7) Diabetes mellitus Code(s): E11.9 - TYPE 2 DIABETES MELLITUS WITHOUT COMPLICATIONS Status: Acute (8) S/P BKA (below knee amputation) unilateral Code(s): Z89.519 - ACQUIRED ABSENCE OF UNSPECIFIED LEG BELOW KNEE Status: Acute (9) PVD (peripheral vascular disease) Code(s): I73.9 - PERIPHERAL VASCULAR DISEASE, UNSPECIFIED Status: Acute (10) Hyperchloremic acidosis Code(s): E87.2 - ACIDOSIS Status: Acute - Plan restart lisinopril and monitor renal function. -: DC rocepgin. has recieved 5 days of antibiotics -: Continue other treatments. -: awaiting placement * .
--- NOTE | 2018-07-22 17:44 | EKG ---
Test Reason : Blood Pressure : / mmHG Vent. Rate : 093 BPM Atrial Rate : 093 BPM P-R Int : 136 ms QRS Dur : 070 ms QT Int : 354 ms P-R-T Axes : 082 063 034 degrees QTc Int : 440 ms Sinus rhythm with Premature supraventricular complexes Nonspecific ST abnormality Abnormal ECG Confirmed by LESTER BOTELLO ([id number]), editor in chief newspaper DEN HAGEN ([id number]) on 07/22/2018 5:43:39 PM Referred By: Confirmed By:LESTER BOTELLO
[2018-07-22] MEDS: Famotidine 20 MG TAB PO SCH (20:17)
[2018-07-22] MEDS: HumaLOG 300 UNITS/3 ML VIAL SC PRN (20:46)
[2018-07-22] MEDS: Lidocaine Patch Removal 1 EACH TOP SCH (22:04)
[2018-07-23 05:27] LABS: Anion Gap 13 mmol/L (10-20); BUN (Urea Nitrogen) 26 mg/dL (9.8-20.1); Calc. Creatinine Clearance 24 mL/min (70-130); Calcium 8.9 mg/dL (7.8-10.44); Carbon Dioxide 21 mmol/L (23-31); Chloride 111 mmol/L (98-107); Estimated GFR-MDRD 33; Glucose 89 mg/dL (83-110); Potassium 4.1 mmol/L (3.5-5.1); Sodium 141 mmol/L (136-145)
[2018-07-23] MEDS: Sodium Bicarbonate Tab 325 MG TAB PO SCH ×2 (07:47→20:38)
[2018-07-23] MEDS: hydrALAZINE 25 MG TAB PO SCH ×3 (07:48→20:38)
[2018-07-23] MEDS: Amlodipine 10 MG TAB PO SCH (07:48)
[2018-07-23] MEDS: Lisinopril 20 MG TAB PO SCH (07:49)
[2018-07-23] MEDS: Heparin 5,000 UNITS/ML VIAL SC SCH ×2 (07:49→20:39)
[2018-07-23] MEDS: Nicotine 14 MG PATCH TD SCH (07:49)
[2018-07-23] MEDS: Metoprolol Tartrate 50 MG TAB PO SCH ×2 (07:49→20:38)
[2018-07-23] MEDS ORDERED: Non-Formulary Item 1 EACH (Lisinopril [Lisinopril] 40 MG) PO SCH (09:00)
--- NOTE | 2018-07-23 11:02 | PRG ---
DATE OF SERVICE: SUBJECTIVE: The patient is seen and examined at the bedside. She is doing quite well, but she is still quite confused. Her appetite is fair. She just ate breakfast. She is awaiting her sister to come to see her after she is done with her congregational mass. OBJECTIVE: VITAL SIGNS: Blood pressure is 180/80, pulse is 75, temperature is 98.4, respiratory rate is 18, O2 saturation 96% on room air. HEENT: Head is atraumatic and normocephalic. Eyes are PERRLA. Sclerae are nonicteric. Oral mucosa is moist. NECK: Supple. LUNGS: Clear. HEART: S1, S2 normal. No S3. No S4. No any murmur. ABDOMEN: Soft, nontender. EXTREMITIES: No clubbing, cyanosis, or edema. NEUROLOGICAL: She is alert and oriented x0. There is no any sensory or motor deficits present. Cranial nerves are intact. LABORATORY DATA: Labs showed sodium of 141, potassium 4.1, chloride 111, CO2 of 21, BUN 26, creatinine 1.80. The rest of chemistry is within normal limits. Glycemia is ranging from 95 to 248. IMPRESSION: 1. Acute kidney injury. 2. Acute metabolic encephalopathy. 3. Right acetabular fracture. 4. Urinary tract infection. 5. Hypertension. 6. Diabetes mellitus. 7. Status post gajzt-awc-sruh amputation. 8. Peripheral vascular disease. 9. Hyperchloremic acidosis. PLAN: Her antibiotics were finished yesterday. She is awaiting placement. I am going to talk to her sister regarding her mental status. I believe that she has quite advanced dementia and she is at her baseline at this point. Job ID: [id number]
[2018-07-23] MEDS: HumaLOG 300 UNITS/3 ML VIAL SC PRN ×2 (11:15→20:39)
[2018-07-23] MEDS: Famotidine 20 MG TAB PO SCH (20:38)
[2018-07-23] MEDS: Lidocaine Patch Removal 1 EACH TOP SCH (20:57)
[2018-07-24] MEDS: Amlodipine 10 MG TAB PO SCH (08:33)
[2018-07-24] MEDS: Sodium Bicarbonate Tab 325 MG TAB PO SCH ×2 (08:33→19:24)
[2018-07-24] MEDS: Lisinopril 20 MG TAB PO SCH (08:33)
[2018-07-24] MEDS: Heparin 5,000 UNITS/ML VIAL SC SCH ×2 (08:34→19:25)
[2018-07-24] MEDS: hydrALAZINE 25 MG TAB PO SCH ×3 (08:34→19:24)
[2018-07-24] MEDS: Metoprolol Tartrate 50 MG TAB PO SCH ×2 (08:34→19:24)
[2018-07-24] MEDS: Nicotine 14 MG PATCH TD SCH (11:41)
[2018-07-24] MEDS: Acetaminophen/Codeine 30-300mg Tablet PO PRN (12:07)
--- NOTE | 2018-07-24 16:07 | PRG ---
DATE OF SERVICE: 07/24/2018 SUBJECTIVE: The patient is seen and examined at the bedside. Family member is present in the room during my visit. She does not have much complaints to offer. Her appetite is fair. OBJECTIVE: VITAL SIGNS: Blood pressure is 147/67, pulse is 73, temperature is 98.7, respiratory rate is 18, O2 saturation is 97% on room air. HEENT: Head is atraumatic and normocephalic. Eyes are PERRLA. Sclerae are nonicteric. Oral mucosa is moist. NECK: Supple. LUNGS: Clear. HEART: S1 and S2, normal. Somewhat irregular. No S3. No S4. ABDOMEN: Soft, nontender, and nondistended. EXTREMITIES: No clubbing, cyanosis, or edema. NEUROLOGIC: She is alert and oriented x0. There is no any motor deficit. She follows my commands. She moves her all four extremities. LABORATORY DATA: Glycemia is ranging from 110 to 235. Blood cultures negative x2. Urine culture negative. IMPRESSION: 1. Altered mental status/acute metabolic encephalopathy, improved. 2. Baseline dementia. 3. Right acetabular fracture. 4. Urinary tract infection. 5. Hypertension. 6. Diabetes mellitus. 7. Status post zbktr-jpw-mrbv amputation. 8. Peripheral vascular disease. 9. Hyperchloremic acidosis. 10. Acute kidney injury. PLAN: The patient is getting approved for [facility] facility for rehabilitation process. We are waiting for the final report. She finished her antibiotics. I had discussion with the family member. Apparently, she has quite significant memory problem for quite some time, and that is her baseline she is at, at this point. Job ID: [id number]
[2018-07-24] MEDS: Famotidine 20 MG TAB PO SCH (19:24)
[2018-07-24] MEDS: Lidocaine Patch Removal 1 EACH TOP SCH (19:25)
[2018-07-24] MEDS: HumaLOG 300 UNITS/3 ML VIAL SC PRN (19:28)
[2018-07-25] MEDS: Sodium Bicarbonate Tab 325 MG TAB PO SCH ×2 (08:50→21:10)
[2018-07-25] MEDS: Lisinopril 20 MG TAB PO SCH (08:51)
[2018-07-25] MEDS: NIFEdipine XL 60 MG TAB PO SCH ×2 (08:51→21:09)
[2018-07-25] MEDS: hydrALAZINE 25 MG TAB PO SCH ×3 (08:52→21:10)
[2018-07-25] MEDS: Heparin 5,000 UNITS/ML VIAL SC SCH ×2 (08:52→21:10)
[2018-07-25] MEDS: Metoprolol Tartrate 50 MG TAB PO SCH ×2 (08:55→21:10)
[2018-07-25] MEDS: Nicotine 14 MG PATCH TD SCH (12:53)
--- NOTE | 2018-07-25 15:13 | PRG ---
DATE OF SERVICE: 07/25/2018 SUBJECTIVE: The patient was seen and examined at bedside. She complains about the right foot pain. Her appetite is good. She just had a nap. OBJECTIVE: VITAL SIGNS: Blood pressure is 130/56, pulse is 59, respiratory rate is 16, O2 saturation is 93% on room air. Her temperature is 98.5. HEENT: Her eyes are PERRLA. Sclerae nonicteric. Oral mucosa is moist. NECK: Supple. LUNGS: Clear. HEART: S1 and S2 normal. ABDOMEN: Soft and nontender. EXTREMITIES: No clubbing, cyanosis, or edema on the left side. The right leg is aibmb-nfk-aqxs amputee. NEUROLOGIC: She is alert and oriented x0. There is no any motor deficits present. She follows my commands. LABORATORY DATA: Glycemia is ranging from 131 to 246. IMPRESSION: 1. Altered mental status/acute metabolic encephalopathy, improved. 2. Baseline dementia. 3. Right acetabular fracture. 4. Urinary tract infection. 5. Hypertension, improved. 6. Diabetes mellitus type 2, controlled. 7. Status post sdjpp-nxf-jptf amputation on the right side. 8. Peripheral vascular disease. 9. Hyperchloremic acidosis, resolved. 10. Acute kidney injury, resolved. PLAN: Plan is to continue PT, OT, and transfer the patient to group home facility for PT and OT as soon as this arranged. Job ID: [id number]
[2018-07-25] MEDS: HumaLOG 300 UNITS/3 ML VIAL SC PRN ×2 (15:55→21:12)
[2018-07-25] MEDS: Famotidine 20 MG TAB PO SCH (21:10)
[2018-07-25] MEDS: Lidocaine Patch Removal 1 EACH TOP SCH (21:12)
[2018-07-26] MEDS: hydrALAZINE 25 MG TAB PO SCH ×4 (08:22→21:33)
[2018-07-26] MEDS: Heparin 5,000 UNITS/ML VIAL SC SCH ×2 (08:22→21:34)
[2018-07-26] MEDS: Sodium Bicarbonate Tab 325 MG TAB PO SCH ×2 (08:22→21:34)
[2018-07-26] MEDS: NIFEdipine XL 60 MG TAB PO SCH ×3 (08:24→09:38)
[2018-07-26] MEDS: Lisinopril 20 MG TAB PO SCH ×2 (08:24→08:29)
[2018-07-26] MEDS: Metoprolol Tartrate 50 MG TAB PO SCH ×3 (08:24→21:33)
[2018-07-26] MEDS: Nicotine 14 MG PATCH TD SCH (11:21)
[2018-07-26 13:02] LABS: Glucose 172 mg/dL (83-110)
--- NOTE | 2018-07-26 13:55 | DIS ---
DATE OF ADMISSION: 07/17/2018 DATE OF DISCHARGE: 07/26/2018 DIAGNOSES AT THE TIME OF DISCHARGE: 1. Altered mental status/acute metabolic encephalopathy, improved. 2. Baseline dementia. 3. Right acetabular fracture. 4. Urinary tract infection status post treatment. 5. Hypertension, improved. 6. Diabetes mellitus type 2, controlled. 7. Status post qmqcr-qyq-llhd amputation on the right side per history. 8. Peripheral vascular disease. 9. Hyperchloremic acidosis, resolved. 10. Acute kidney injury, resolved. HOSPITAL COURSE: The patient was a 78-year-old female, who was admitted to the hospital with confusion, was taken by EMS to the emergency room, where she had her glucose checked, which was normal. The CT of the brain did not show any acute process. Screening metabolic survey did reveal elevated creatinine as well as urinalysis suspicious for infectious process. The patient received IV Rocephin, Tylenol, normal saline, Zofran, and morphine sulfate in the emergency room and got admitted to the hospital. Her blood pressure was up to 172/87 and at the time of admission, pulse was 91. Sodium was 141, potassium 4.8, chloride 109, CO2 of 20, BUN 38, creatinine 2.34, lactic acid was 1.7, serum ammonia was 17, and lipase was 53. White count of 18.4, hemoglobin 9.7, hematocrit 31, and platelet count 244,000 with 83% of neutrophils. Urinalysis showed positive protein, moderate blood with large leukocyte esterase with greater than 50 to tln-tcprkhvo-ty-count rbc's and wbc's per high-power field. Urine drug screen was negative. Plasma alcohol level was less than 10. EKG showed sinus rhythm with some premature atrial contractions. The patient talked to the hospital with working diagnosis of acute metabolic encephalopathy, urinary tract infection was suspected as a cause. The patient was on antibiotic and she was given Ativan p.r.n. for agitation. Underwent x-ray of the right hip 2 views, which showed possible right acetabular fracture and the pelvis CT was done, which showed and confirmed comminuted right cerebral fracture. Dr. Wood, orthopedic surgeon was consulted and he recommended to do crz-fw-nlplz weightbearing in order to keep this fracture site from displacing any further, amended to use just wheelchair to let this fracture heal. Further pressure could cause some displacement of the fracture site and correctly, she will need to have hip replacement in the future. The patient's blood cultures came back negative and urine culture came back with more than 100,000 colonies of mixed skin ascencion, so this was not a good specimen. She finished up her course of antibiotic. Her mentation improved, although she has quite significant baseline dementia. Today, she is accepted by the residential facility for physical therapy, discharged to [facility] for that purpose. Blood pressure is down to 104/57. Her temperature is 98.6, pulse is 70, and respiratory rate is 16. She is 94% on room air. She is going to stay on diabetic diet, 2000 calories ADA and as mentioned above, we recommend to use the wheelchair to help the fracture to heal properly and she will follow up with Dr. Wood. DISCHARGE MEDICATIONS: At the time of discharge; 1. Metoprolol tartrate 50 mg once a day. 2. Lisinopril 40 mg once a day. 3. Hydralazine 25 mg 3 times a day. 4. Nicotine patch 14 mg once a day. 5. Nicardipine 60 mg once a day. 6. Pepcid 20 mg once a day. 7. Tylenol with Codeine p.r.n. for the pain. TIME SPENT: The patient is seen and examined before she is discharged and discharge time is less than 30 minutes. Job ID: [id number]
[2018-07-26] MEDS: Famotidine 20 MG TAB PO SCH (21:33)
[2018-07-26] MEDS: HumaLOG 300 UNITS/3 ML VIAL SC PRN (21:38)
[2018-07-27] MEDS: Lisinopril 20 MG TAB PO SCH (07:43)
[2018-07-27] MEDS: NIFEdipine XL 60 MG TAB PO SCH (07:43)
[2018-07-27] MEDS: Metoprolol Tartrate 50 MG TAB PO SCH (07:43)
[2018-07-27] MEDS: Sodium Bicarbonate Tab 325 MG TAB PO SCH (07:43)
[2018-07-27] MEDS: hydrALAZINE 25 MG TAB PO SCH (07:43)
[2018-07-27] MEDS: Heparin 5,000 UNITS/ML VIAL SC SCH (07:44)
[2018-07-27] MEDS: Acetaminophen 500 MG TAB PO PRN (08:28)
[2018-07-27] MEDS: Nicotine 14 MG PATCH TD SCH (12:14)
[2018-07-27 12:20] VITALS: BP 144/62; TEMP 98.2
--- NOTE | 2018-07-27 14:08 | DIS ---
DATE OF ADMISSION: 07/17/2018 DATE OF DISCHARGE: 07/27/2018 PRIMARY CARE PROVIDER: Everett Drummond MD DISCHARGE DIAGNOSES: 1. Acute metabolic encephalopathy, improved. 2. Right acetabular fracture. 3. Baseline dementia. 4. Urinary tract infection. 5. Acute kidney injury. 6. Hyperchloremic acidosis. Please note that this is a second discharge summary being dictated for this admission. The patient was discharged by Dr. Puckett and he dictated a discharge summary on July 26, 2018. The patient could not be discharged to [facility] that day. The patient is being discharged to [facility] on July 27, 2018. CONDITION OF PATIENT ON THE DAY OF DISCHARGE: Stable. I assessed Ms. Shepard on the day of discharge. She denies any chest pain or shortness of breath. Vital signs are stable. S1 and S2 are heard, regular. Lungs are clear to auscultation bilaterally. DISCHARGE MEDICATIONS: As dictated by Dr. Puckett on discharge summary dated July 26. HOSPITAL COURSE: As dictated by Dr. Puckett on discharge summary dated July 26, 2018. Many thanks for allowing me to participate in your patient's care. Please feel free to contact me with any questions or concerns. DISCHARGE DESTINATION: [facility]. TIME SPENT: Total amount of time spent coordinating this discharge: 14 minutes. Job ID: [id number]
== END 2018-07-27 13:24 | DRG 689 ==
LOC: ERS 07:48 → ERHOLD 09:39 → T4-A 14:32
PROVIDERS: ADMIT Family Medicine; ATTEND Family Medicine
DX: N39.0 Urinary tract infection, site not specified (principal); G93.41 Metabolic encephalopathy; S32.401A Unspecified fracture of right acetabulum, initial encounter for closed fracture; N17.9 Acute kidney failure, unspecified; I12.9 Hypertensive chronic kidney disease with stage 1 through stage 4 chronic kidney disease, or unspecified chronic kidney disease; E87.2 Acidosis; E11.22 Type 2 diabetes mellitus with diabetic chronic kidney disease; E11.51 Type 2 diabetes mellitus with diabetic peripheral angiopathy without gangrene; F17.210 Nicotine dependence, cigarettes, uncomplicated; D63.1 Anemia in chronic kidney disease; F03.90 Unspecified dementia, unspecified severity, without behavioral disturbance, psychotic disturbance, mood disturbance, and anxiety; Z90.710 Acquired absence of both cervix and uterus; Z89.511 Acquired absence of right leg below knee; Z79.4 Long term (current) use of insulin; Z97.13 Presence of artificial right leg (complete) (partial); Z79.899 Other long term (current) drug therapy
CPT/HCPCS: 36415; 36416; 51701; 70450; 72192; 80048; 80053; 80306; 80307; 81003; 81015; 82140; 82947; 83036; 83605; 83690; 85007; 85025; 85027; 85610; 85730; 87040; 87077; 87086; 93005; 94760; 96365; 96375; A4353; J0360; J0696; J1644; J2270; J2405; J7050; Q0162